=== PATIENT | female | born 1990 | race Caucasian/White ===

== ENCOUNTER 2020-11-22 10:00 | Outpatient (RCR) | payer BC, SELFPAY ==
[2020-10-25 15:16] VITALS: BMI 34.8
[2020-10-25 15:18] VITALS: BMI 34.8
[2020-11-22 10:06] VITALS: BMI 34.8
[2020-11-22 10:24] VITALS: BMI 34.7
== END 2021-01-16 10:06 | disposition home or self-care (01) ==
LOC: ANHDMC 10:00
PROVIDERS: PCP Nurse Practitioner; Visit Provider Nurse Practitioner
DX: R63.5 Abnormal weight gain (principal); Z68.34 Body mass index [BMI] 34.0-34.9, adult; Z71.3 Dietary counseling and surveillance
CPT/HCPCS: 97802; 97803

== ENCOUNTER 2022-01-17 08:03 | Outpatient (CLI) | payer BC, SELFPAY ==
[2022-01-17 18:19] LABS: Kit Draw Collected
== END 2022-01-17 08:04 | disposition home or self-care (01) ==
LOC: ANHGOSHLAB 08:05
PROVIDERS: PCP Family Medicine; Visit Provider Nurse Practitioner
DX: Z00.00 Encounter for general adult medical examination without abnormal findings (principal); E55.9 Vitamin D deficiency, unspecified; E53.8 Deficiency of other specified B group vitamins; R53.83 Other fatigue
CPT/HCPCS: 36415

== ENCOUNTER → 2023-04-29 16:12 | Outpatient (CLI) | payer BC, SELFPAY ==
--- NOTE | ~2023-04-29 | XR_ITS ---
Clinical Indication: Shortness of breath PA and lateral views of the chest: Comparison: None Findings: The lungs are clear, without evidence of focal consolidation or pleural effusion. Cardiome diastinal silhouette is within normal limits. Bones and soft tissues are unremarkable. Impression: Normal chest. Reviewed, dictated and finalized at [facility]. 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
== END ==
PROVIDERS: PCP Nurse Practitioner Family; Visit Provider Nurse Practitioner Family
DX: R06.02 Shortness of breath (principal)
CPT/HCPCS: 71046

== ENCOUNTER 2023-05-05 14:29 | Outpatient (CLI) | payer BC, SELFPAY ==
--- NOTE | 2023-05-06 07:22 | WPDPFTINT ---
PFT Procedure Performed PFT Procedure Performed Spirometry with Pre/Post Bronchodilator Plethysmography (Lung Vol) Diffusing Cap (DLCO) Flow Vol Loop PFT Interpretation This is a pulmonary function test with pre and post-bronchodilator spirometry, plethysmography and diffusing capacity. The test was performed and results interpreted in accordance with the 2019 and 2005 ATS/ERS Task Force guidelines respectively using the Global Lung Function Initiative-2012 reference equations. Patient demonstrated good effort and cooperation. Reproducibility criteria were met. The quality of the pre bronchodilator spirometry maneuver was Grade A and post bronchodilator spirometry maneuver was Grade A. Findings: Spirometry: There is decreased maximal expiratory airflow. the contour the inspiratory flow tracing is normal. The pre bronchodilator FVC is 4.06 L, 107% predicted. The pre bronchodilator FEV1 is 2.88 L, 90% predicted. The pre bronchodilator FEV1: FVC ratio 71%. The post bronchodilator FVC is 4.11 L, representing a 1% increase. The post bronchodilator FEV1 is 3.12 L, representing a 9% increase. The post bronchodilator FEV1: FVC ratio 76%. Plethysmography: The total lung capacity is 5.37 L, 106% predicted. The functional residual capacity is 2.49 L, 90% predicted. The residual volume is 1.31 L, 92% predicted. Diffusing capacity: The diffusing capacity unadjusted for hemoglobin and carboxyhemoglobin is 24.5, 99% predicted. The diffusing capacity adjusted for alveolar volume is 4.87, 100% predicted. Impression: There is a mild obstructive abnormality with a normal FEV1. There is no significant improvement after inhaling a single dose of albuterol. The lung volumes are normal. The diffusing capacity is normal. There are no prior studies for comparison
== END 2023-05-05 14:30 | disposition home or self-care (01) ==
LOC: ANHPFT 14:30
PROVIDERS: PCP Nurse Practitioner Family; Visit Provider Nurse Practitioner Family
DX: R06.02 Shortness of breath (principal)
CPT/HCPCS: 94060; 94726; 94729

== ENCOUNTER 2024-09-18 10:43 | Emergency (ER) | payer OTHER, SELFPAY ==
[2024-09-18 10:57] VITALS: BP 150/97; PULSE 74; RESP 16; TEMP 36.6; O2SAT 99
[2024-09-18 11:06] LABS: EDSTREPNEGPOS1 Positive (Negative)
--- NOTE | 2024-09-18 11:06 | ED.URI ---
HPI - URI/Sore Throat General Chief Complaint: Upper Respiratory Infection Stated Complaint: SORE THROAT Time Seen by Provider: 09/18/24 10:58 Source: patient and RN notes reviewed Mode of arrival: ambulatory Limitations: no limitations History of Present Illness HPI Narrative: Patient presents today with a one-week history of sore throat that worsened since last night as well as matting to the left eye that started this morning. Currently rates her pain 3/10 and has tried DayQuil, NyQuil, and ibuprofen with mild relief. 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 Related Data Allergies Allergy/AdvReac Type Severity Reaction Status Date / Time doxycycline Allergy Severe Chest Pain Verified 09/18/24 10:57 [facility] Past Medical History Medical History Depression Asthma Hyperhidrosis Surgical History Surgical History H/O wisdom tooth extraction Family History Family History Mother Hypertension Family history of arthritis Father Patient's father is in good health Grandparent Family history of arthritis Family history of cardiomyopathy, Onset Age: 66 Family history of pancreatic cancer, Onset Age: 89 Family history of emphysema, Onset Age: 66 Family history of colonic diverticulitis Social History Social History Smoking status: Never smoker Alcohol intake: current Drinks per week: 2 Alcohol use details: occasionnally Substance use: never Substance use type: does not use Do You Feel Safe in your Home?: Yes Lack of Transportation: No Lack of Food: Never True Current Housing: I Have Housing Concerned About Future Housing: No Difficulty Paying Gas/Electric Bills: No Difficulty Paying for Meds: No Currently Unemployed: No Education: Master's Degree or Higher Difficulty w/ Childcare or Family Care: No Living arrangements: with family Additional living arrangements comments: Occupation/Education: occupation 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 Please see nursing chart for further information. There is no relevant family history pertinent to the presenting complaint Exam Narrative: GENERAL: Well-appearing, well-nourished, and in no acute distress. HEAD: Normocephalic, atraumatic. EYES: EOMI. PERRL. No redness or drainage. Conjunctivae normal. ENT: Mucous membranes pink and moist. Nares clear. No rhinorrhea. TMs normal bilaterally. Throat mildly erythematous without edema or exudate. Uvula midline. NECK: Normal AROM. Supple. Bilateral anterior cervical chain lymphadenopathy CHEST: No respiratory distress. Clear to auscultation. HEART: Regular rate and rhythm. No murmur appreciated. EXTREMITIES: Normal range of motion. No edema. SKIN: Warm, dry, no rash. Capillary refill normal. Normal skin turgor. NEURO: No focal deficits. Alert and oriented x3. Gait steady. PSYCH: Normal affect. No signs of depression or anxiety. Course Course Level of Care: Express Care Visit Vital Signs Vital signs: Vital Signs Temperature 98 F 09/18/24 10:57 Pulse Rate 74 09/18/24 10:57 Respiratory Rate 16 09/18/24 10:57 Blood Pressure 150/97 H 09/18/24 10:57 Pulse Oximetry 99 09/18/24 10:57 Oxygen Delivery Room Air 09/18/24 10:57 Temperature 98 F 09/18/24 10:57 Pulse Rate 74 09/18/24 10:57 Respiratory Rate 16 09/18/24 10:57 Blood Pressure 150/97 H 09/18/24 10:57 Pulse Oximetry 99 09/18/24 10:57 Oxygen Delivery Room Air 09/18/24 10:57 Reviewed MDM - URI/Sore Throat MDM Narrative Medical decision making narrative: 34-year-old female patient presents today complete a one-week history of sore throat and some left eye matting this morning. Eye exam is normal this morning. Throat is mildly erythematous. OTC treatment has been mildly helpful. Rapid strep positive. Prescription for amoxicillin sent to pharmacy. Vital signs stable. Anticipatory guidance given. Differential Diagnosis Differential diagnosis: Likely upper respiratory infection, otitis media, viral infection, pharyngitis and other (Strep throat, conjunctivitis) Lab Data Attestation: I reviewed the patient's lab results. Labs: Lab Results 09/18/24 Range/Units 11:04 POC Grp A Strep Screen Pending Critical Care Time Critical Care Time Critical Care Time: No Discharge Plan Discharge Clinical Impression: Strep throat Patient Disposition: Home Condition: Stable Instructions: Strep Throat (DC) Additional Instructions: You have tested positive for strep throat. Please take the amoxicillin as prescribed until gone. You will be contagious for 24 hours after starting the medication. Take Tylenol or Ibuprofen for pain or fever, if able. Rest and stay hydrated. Follow up with your PCP in 3 days if symptoms are not improving. Go to the ER immediately if you develop worsening symptoms such as shortness of breath, difficulty swallowing. Your blood pressure was elevated above 120/80 today at Urgent Care. This puts you above the threshold for follow up. Please schedule a followup visit with your personal physician as soon as possible, for further evaluation and treatment. Even blood pressure exceeding 120/80 may indicate pre-hypertension. Patient Language: Montenegrin Prescriptions: New amoxicillin 875 mg tablet 875 mg PO Q12H 10 Days Qty: 20 0RF No Action loratadine [Claritin] 10 mg tablet 10 mg PO DAILY Qty: 30 2RF fluticasone propionate [Flonase Allergy Relief] 50 mcg/actuation spray,suspension 1 spray intranasal BID Qty: 16 3RF Rx Instructions: administer into each nostril desogestrel-ethinyl estradiol [Enskyce] 0.15-0.03 mg tablet 1 tablet PO DAILY Qty: 84 4RF albuterol sulfate 90 mcg/actuation HFA aerosol inhaler 1 - 2 puff inhalation Q4-6H PRN (Reason: shortness of breath or wheezing) Qty: 8.5 2RF bupropion HCl [Wellbutrin XL] 150 mg tablet extended release 24 hr 150 mg PO QAM Qty: 90 1RF Rx Instructions: Take one tablet once a day. Follow-up/Referrals: Sindy Tanner NP [Primary Care Provider] - Stand Alone Forms: Work/School Release IP Time of Disposition: :
== END 2024-09-18 11:20 | disposition home or self-care (01) ==
PROVIDERS: Emergency Provider Nurse Practitioner; PCP Nurse Practitioner Family
DX: J02.0 Streptococcal pharyngitis (principal); J45.909 Unspecified asthma, uncomplicated; F32.A Depression, unspecified
CPT/HCPCS: 87880; 99213; G0463